=== PATIENT | female | born 1970 ===

== ENCOUNTER 2017-05-20 19:08 | Emergency (ER) | payer BC ==
[2017-05-20 21:24] VITALS: BP 118/57
--- NOTE | 2017-05-20 22:19 | UC ---
Skin Complaint HPI - HPI Summary HPI Summary: Patient presents with complaints of rash on the right side of her face. She states that on the outside it feels itchy, and on the inside she feel pain. She states she went to the dentist because she thought it was a tooth and they put her on antibiotic for pulpitis, she took one dose and then stopped because she does not want to take medication that she might not need. She continued to have pain today so she came to the clinic. She denies any visual disturbance, or pain. She denies fever or chillls. The pain she states is a deep sensation and when she pushes on the molar in the back she does feel more pain in the area. - History of Current Complaint Chief Complaint: UCSkin Time Seen by Provider: 05/20/17 21:16 Stated Complaint: RASH ON FACE,TOOTH PAIN Hx Obtained From: Patient Hx Last Menstrual Period: 05/12/17 ?: No Onset/Duration: Gradual Onset Skin Exposure Onset/Duration: Days Ago Timing: Constant Onset Severity: Mild Current Severity: Moderate Location: Diffuse, Other - right side of face./ Aggravating: Nothing Alleviating: Nothing Associated Signs & Symptoms: Positive: Rash - Allergy/Home Medications Allergies/Adverse Reactions: Allergies Allergy/AdvReac Type Severity Reaction Status Date / Time No Known Allergies Allergy Verified 05/20/17 19:28 Home Medications: Home Medications Amoxicillin PO (*) [-Amoxicillin 250 MG CAP*] 05/20/17 [History] Ibuprofen TAB* [Advil TAB*] 05/20/17 [History] Review of Systems Constitutional: Negative Skin: Rash ENT: Negative Respiratory: Negative Cardiovascular: Negative Gastrointestinal: Negative Genitourinary: Negative Motor: Negative Musculoskeletal: Negative Neurological: Negative All Other Systems Reviewed And Are Negative: Yes PMH/Surg Hx/FS Hx/Imm Hx Previously Healthy: Yes - Surgical History Surgical History: Yes Surgery Procedure, Year, and Place: 2010 APPENDIX. 2014 C SECTION - Family History Known Family History: Positive: Hypertension - Social History Occupation: Employed Full-time Alcohol Use: Occasionally Substance Use Type: None Smoking Status (MU): Former Smoker Physical Exam Triage Information Reviewed: Yes Appearance: Well-Appearing Vital Signs: Initial Vital Signs Temp 97.4 F 05/20/17 19:25 Pulse 69 05/20/17 19:25 Resp 12 05/20/17 19:25 BP 122/72 05/20/17 19:25 Pulse Ox 99 05/20/17 19:25 Vital Signs Reviewed: Yes Eye Exam: Normal ENT Exam: Normal Neck exam: Normal Respiratory Exam: Normal Abdominal Exam: Normal Skin Exam: Other - right face inspection:erythmaous raised circular rash in a dermatomal pattern. Course/Dx - Course Course Of Treatment: Patient presents with somewhat of a atypical rash on the right side of her face, concnening for shingles. She was started on famcyclvir and I stongly recommend she been seen by the eye doctor as soon as possible and the location of the rash could eventually involed her eye. there was no signs of eye involvment at this time, she did have any pain or swelling. She verbalized understanding of the discharge instructions. - Differential Diagnoses - Skin Complaint Differential Diagnoses: Other - shingles - Diagnoses Provider Diagnoses: shingles Discharge - Discharge Plan Condition: Stable Disposition: HOME Prescriptions: Famciclovir [Famvir] 500 mg PO TID #21 tab Patient Education Materials: Shingles (ED) Referrals: Harish Arrington MD [Primary Care Provider] - Jericho Camacho MD [Medical Doctor] - Additional Instructions: you need to contact the eye doctor monday for follow up.
== END 2017-05-20 22:14 | disposition home or self-care (01) ==
LOC: UCEAST 19:08
DX: B02.9 Zoster without complications (principal); Z87.891 Personal history of nicotine dependence
CPT/HCPCS: 99212; G0463

== ENCOUNTER 2019-02-03 09:04 | Emergency (ER) | payer BC ==
[2019-02-03 09:15] VITALS: BP 121/71
--- NOTE | 2019-02-03 09:35 | UC ---
Shoulder Pain HPI - HPI Summary HPI Summary: 48-year-old woman comes in with a chief complaint of left shoulder pain. Pain started at the beginning of December 2018. Patient feels like the pain is underneath her left scapula. She lives in a primary care physician at the end of December and was prescribed naproxen and cyclobenzaprine. This did help some with the pain. However the pains now getting worse. She has increased her activity. Pain radiates from the scapula down into the left arm into the left neck. Pain is worse with movement of the neck and the arm which moves the scapula. She started some tingling in her left arm and has been unable to pickler helper heavier items that she normally can pickler helper with her left arm. She denies any loss of range of motion. - History of Current Complaint Chief Complaint: UCUpperExtremity Stated Complaint: SHOULDER PAIN Time Seen by Provider: 02/03/19 09:10 Hx Last Menstrual Period: last week Pain Intensity: 9 - Allergies/Home Medications Allergies/Adverse Reactions: Allergies Allergy/AdvReac Type Severity Reaction Status Date / Time No Known Allergies Allergy Verified 02/03/19 09:10 PMH/Surg Hx/FS Hx/Imm Hx Previously Healthy: Yes - Surgical History Surgical History: Yes Surgery Procedure, Year, and Place: 2010 APPENDIX. 2014 C SECTION - Family History Known Family History: Positive: Hypertension - Social History Alcohol Use: Occasionally Substance Use Type: None Smoking Status (MU): Former Smoker Review of Systems All Other Systems Reviewed And Are Negative: Yes Constitutional: Positive: Negative Skin: Positive: Negative Eyes: Positive: Negative ENT: Positive: Negative Respiratory: Positive: Negative Cardiovascular: Positive: Negative Gastrointestinal: Positive: Negative Motor: Positive: Other - SEE HPI Neurovascular: Positive: Other - SEE HPI Musculoskeletal: Positive: Other: - SEE HPI Neurological: Positive: Other - SEE HPI Psychological: Positive: Negative Is Patient Immunocompromised?: No Physical Exam Triage Information Reviewed: Yes Appearance: Well-Appearing, Well-Nourished, Pain Distress - MILD WITH LEFT ARM ROM Vital Signs: Initial Vital Signs Temp 97.9 F 02/03/19 09:10 Pulse 83 02/03/19 09:10 Resp 18 02/03/19 09:10 BP 121/71 02/03/19 09:10 Pulse Ox 100 02/03/19 09:10 Vital Signs Reviewed: Yes Eye Exam: Normal Eyes: Positive: Conjunctiva Clear Neck: Positive: Other: - MILD TENDERNESS LOT NECK PARASPINOUS MUSCLES Respiratory: Positive: Lungs clear, Normal breath sounds, No respiratory distress Cardiovascular: Positive: RRR Musculoskeletal: Positive: Other: - Patient is tender to palpation just to the left of midline of the neck down through the left trapezius muscle and on the borders of the left scapula. Radial pulses are equal bilaterally. No sensation deficit of the arms on examination. ROM of shoulders is symetric. No decreased strength found on exam. Neurological: Positive: Alert, Muscle Tone Normal Psychological Exam: Normal Psychological: Positive: Age Appropriate Behavior Skin Exam: Normal Shoulder Course/Dx - Course Course Of Treatment: No neurologic deficit on examination. We discussed CT imaging of the C-Spine. Patient reports recent normal imaging of her spine in the last year. Patient also feels like the primary cause of the pain is underneath her scapula and not in her neck. With no neurologic deficit found on examination the plan is to continue the nonsteroidal anti-inflammatories and reintroduce Flexeril 10 mg by mouth when necessary. Also wrote a prescription for Cabery to be used as needed. Patient will be following up either with her primary care physician or sports medicine for further evaluation and determination of physical therapy needs an imaging needs. Let the patient know if she ends up with any focal neurologic deficit that does not go away or is worsening or she's having pain she needs to get seen again right away. - Differential Dx/Diagnosis Provider Diagnosis: Shoulder pain, left, Paresthesia of left arm Discharge - Sign-Out/Discharge Documenting (check all that apply): Patient Departure All imaging exams completed and their final reports reviewed: No Studies - Discharge Plan Condition: Stable Disposition: HOME Prescriptions: Cyclobenzaprine TAB* [Flexeril 10 MG TAB*] 10 mg PO TID PRN #15 tab PRN Reason: Pain HYDROcodone/ACETAMIN 5-325 MG* [Cabery 5-325 TAB*] 1 tab PO Q4H PRN #20 tab MDD 6 PRN Reason: Pain Patient Education Materials: Paresthesia (ED), Shoulder Pain (ED) Referrals: Harish Arrington MD [Primary Care Provider] - [facility] [Provider Group] Additional Instructions: FOLLOW UP WITH SPORTS MEDICINE AND YOUR PRIMARY CARE DOCTOR. GET REEVALUATED SOONER IF YOUR CONDITION WORSENS; PAIN, WEAKNESS/NUMBNESS THAT DOES NOT IMPROVE OR ANY QUESTIONS OR CONCERNS. - Billing Disposition and Condition Condition: STABLE Disposition: Home
== END 2019-02-03 09:35 | disposition home or self-care (01) ==
LOC: UCEAST 09:04
DX: M25.512 Pain in left shoulder (principal); R20.2 Paresthesia of skin; Z87.891 Personal history of nicotine dependence
CPT/HCPCS: 99212; G0463